=== PATIENT | male | born 1990 | race Caucasian/White ===

== ENCOUNTER 2022-05-07 16:58 | Emergency (ER) | payer OTHER ==
[2022-05-07 18:22] LABS: BASOPHIL 0.8 % (0-2); EOSINOPHIL 0.9 % (0-5); HCT 46.3 % (42.0-52.0); HGB 15.8 g/dl (13.2-18.0); LYMPHOCYTE 31.1 % (15-48); MCH 29.6 pg (25.0-31.0); MCHC 34.1 g/dL (32.0-36.0); MCV 86.7 fL (78.0-100.0); MONOCYTE 11.2 % (0-12); MPV 10.8 fL (6.0-9.5); NEUTROPHIL 55.5 % (41-80); NRBC 0; PLT 186 K/uL (150-400); RBC 5.34 M/uL (4.70-6.00); RDW 13.4 % (11.5-14.0); WBC 6.3 K/uL (4.0-10.5)
[2022-05-07 18:33] LABS: BILIRUBIN NEGATIVE (NEGATIVE); BLOOD 1+ Ery/uL (NEGATIVE); CLARITY CLEAR (CLEAR); COLOR YELLOW (YELLOW); GLUCOSE (U) NORMAL (NORMAL); LEUKOCYTES NEGATIVE Leu/uL (NEGATIVE); NITRITE NEGATIVE (NEGATIVE); PROTEIN 2+ mg/dL (NEGATIVE); SPECIFIC GRAVITY >=1.030 (1.001-1.030); UROBILINOGEN 0.2 mg/dL (0.2-1.0)
[2022-05-07 18:37] LABS: BUN/CREAT RATIO (CALC) 11.9 RATIO; CREATININE 1.09 mg/dL (0.67-1.17); POTASSIUM 4.1 mmol/L (3.5-5.1)
[2022-05-07 18:49] LABS: SQUAMOUS EPITHELIAL CELLS RARE
[2022-05-07] MEDS ORDERED: NAPROXEN500 MG PO (20:18)
== END 2022-05-07 20:39 | disposition home or self-care (01) ==
LOC: FER 16:58
PROVIDERS: Nurse Practitioner Family
DX: N50.812 Left testicular pain (principal); R31.9 Hematuria, unspecified; F17.210 Nicotine dependence, cigarettes, uncomplicated; Z28.310 Unvaccinated for COVID-19
CPT/HCPCS: 36415; 76870; 80048; 81001; 85025